=== PATIENT | male | born 1985 | race Hispanic/Latino ===

== ENCOUNTER 2021-05-20 15:02 | Emergency (ER) | payer SELFPAY ==
--- OUTSIDE RECORDS SUMMARY | 2021-05-20 15:05 | XMS REPORT | Continuity of Care Document ---
:[address] [facility] t Address [address] [place] [address] Care Team Providers Name Role Phone Asked, Pcp Primary Care Physician Unavailable Kelvin MCFARLAND T. Attending Clinician Problems This patient has no known problems. Allergies, Adverse Reactions, Alerts This patient has no known allergies or adverse reactions. Social History Social Habit Start Date Stop Date Quantity Comments Source Tobacco use and 2021-01-18 2021-01-18 [facility] used [facility]00 [facility] Alcohol intake 2021-01-18 2021-01-18 Ex-drinker [facility] 00:[facility]:00 [facility]:00 (finding) Hospital Sex Assigned At [birth year] [facility] Smoking Status Start Date Stop Date Source Never smoker [facility] Medications Ordered Filled Start Stop Current Ordering Indication Dosage Frequency Signature Comments Components Source Medication Medication Date Date Medication? Clinician (SIG) Name Name cetirizine No 10mg QD Take 1 Meth marcellus (ZyrTEC) 10 01-18 05-13 tablet (10 s t MG tablet 00:00: 04:59 mg total) Ho spita 00 :00 by mouth l daily for 15 days. Vital Signs Vital Name Observation Time Observation Value Comments Source Systolic blood 2021-01-18 22:18:00 137 mm[Hg] [facility] pressure Diastolic blood 2021-01-18 22:18:00 72 mm[Hg] [facility] pressure Heart rate 2021-01-18 22:18:00 71 /min [facility] Body temperature 2021-01-18 22:18:00 36.61 Cori [facility] Respiratory rate 2021-01-18 22:18:00 16 /min [facility] Oxygen saturation in 2021-01-18 22:18:00 99 /min [facility] Arterial blood by Pulse oximetry Body height 2021-01-18 18:35:00 182.9 cm [facility] Body weight 2021-01-18 18:35:00 136.079 kg [facility] BMI 2021-01-18 18:35:00 40.69 kg/m2 [facility] Procedures Procedure Date / Time Performed Performing Clinician Sour e GROUP A STREP, RAPID 2021-01-18 20:35:00 [facility] ANTIGEN RESPIRATORY PATHOGEN 2021-01-18 20:35:00 [facility] PANEL WITH COVID-19 RT-PCR STREP SCREEN CULTURE 2021-01-18 20:35:00 [facility] Encounters Start End Encounter Admission Attending Care Care Encounter Source Date/Time Date/Time Type Type Clinicians Facility Department ID 2019-11-27 Inpatient E [id number] 01:51:00 2021-01-18 2021-01-18 Emergency Kelvin, [id number] [facility] 14:04:00 17:21:00 Quentin Perez [id number] [id number] Hospit a [id number] .[id number] 2021-01-18 2021-01-18 [facility] [id number] [place] [address] 00:00:00 00:00:00 QUENTIN [address] Results This patient has no known results.
--- NOTE | 2021-05-20 15:42 | ER ---
Nurse's Notes [facility] Name: Dinesh Pino II Age: 35 yrs Sex: Male : 1985 Arrival Date: 05/20/2021 Time: 15:05 Bed 25 Private MD: Diagnosis: Other malaise and fatigue Presentation: 05/20 15:09 Chief complaint: Patient states: abd pain, ANGELES and nausea that began 2-3 days ago. PT is ss requesting a COVID test. Coronavirus screen: Client presents with at least one sign or symptom that may indicate coronavirus-19. Ebola Screen: Patient denies exposure to infectious person. Patient denies travel to an Ebola-affected area in the 21 days before illness onset. Initial Sepsis Screen: Does the patient meet any 2 criteria? No. Patient's initial sepsis screen is negative. Does the patient have a suspected source of infection? No. Patient's initial sepsis screen is negative. Risk Assessment: Do you want to hurt yourself or someone else? Patient reports no desire to harm self or others. Onset of symptoms was May 18, 2021. 15:09 Method Of Arrival: Ambulatory ss 15:09 Acuity: JAROCHO 4 ss Historical: - Allergies: 15:10 No Known Allergies; ss - Home Meds: 15:10 None [Active]; ss - PMHx: 15:10 None; ss - PSHx: 15:10 None; ss - Immunization history:: Client reports having NOT received the Covid vaccine. - Social history:: Smoking status: Patient denies any tobacco usage or history of. Screenin:44 Abuse screen: Denies threats or abuse. Nutritional screening: No deficits noted. vg1 Tuberculosis screening: No symptoms or risk factors identified. Fall Risk None identified. Assessment: 15:34 General: Appears in no apparent distress. comfortable, Behavior is calm, cooperative. vg1 Pain: Denies pain. Neuro: Level of Consciousness is awake, alert, obeys commands, Oriented to person, place, time, situation. Cardiovascular: Patient's skin is warm and dry. Respiratory: Airway is patent Respiratory effort is even, unlabored, Denies cough, shortness of breath labored breathing. GI: Bowel sounds present X 4 quads. Abd is soft and non tender X 4 quads. : No signs and/or symptoms were reported regarding the genitourinary system. EENT: No signs and/or symptoms were reported regarding the EENT system. Derm: Skin is intact, is healthy with good turgor. Musculoskeletal: Circulation, motion, and sensation intact. Vital Signs: 15:09 Weight 124.74 kg; Height 5 ft. 11 in. (180.34 cm); ss 15:11 BP 117 / 86; Pulse 92; Resp 16; Temp 97.8(TE); Pulse Ox 100% ; Pain 0/10; ss 15:09 Body Mass Index 38.35 (124.74 kg, 180.34 cm) ED Course: 15:05 Patient arrived in ED. ds1 15:10 Triage completed. 15:10 Arm band placed on left wrist. 15:13 Jordi Ramirez PA is PHCP. [facility] 15:13 Didier Meléndez MD is Attending Physician. [facility] 15:25 Amanda Qureshi, RN is Primary Nurse. vg1 15:35 No provider procedures requiring assistance completed. COVID swab sent to lab. Patient vg1 did not have IV access during this emergency room visit. 15:44 Patient has correct armband on for positive identification. vg1 Administered Medications: No medications were administered Outcome: 15:41 Discharge ordered by MD. [facility] 15:45 Discharged to home ambulatory. vg1 15:45 Condition: stable 15:45 Discharge instructions given to patient, Instructed on discharge instructions, follow up and referral plans. Demonstrated understanding of instructions, follow-up care. 15:45 Patient left the ED. vg1 Signatures: Jordi Ramirez PA PA jmm Sanford, Demi ds1 Kelly Hughes RN RN Amanda Qureshi RN RN vg1
--- NOTE | 2021-05-20 15:42 | EDPHYS ---
Physician Documentation [facility] Name: Dinesh Pino II Age: 35 yrs Sex: Male : 1985 Arrival Date: 05/20/2021 Time: 15:05 Bed 25 Private MD: ED Physician Didier Meléndez HPI: 05/20 15:25 This 35 yrs old Male presents to ER via Ambulatory with complaints of jmm Abdominal Pain, Nausea, Headache. 15:25 The patient presents with abdominal pain that is diffuse. Onset: The symptoms/episode jmm began/occurred gradually, 2 day(s) ago. The symptoms do not radiate. Associated signs and symptoms: Pertinent negatives: nausea, vomiting, and diarrhea, nausea and vomiting, anorexia, blood in stools, chest pain, constipation, diarrhea, dysuria, fever, headache, hematuria, nausea, shortness of breath, testicular pain, vomiting, vomiting blood. The symptoms are described as crampy. This is a 35-year-old male no chronic medical conditions presents emerged department with complaints of mild generalized abdominal pain, denies cough or shortness of breath. Denies vomiting. Patient states that symptoms began approximately 2 days ago. Pain is not localized to a single area of the abdomen. Denies vomiting, diarrhea. Denies recent antibiotics or known infectious exposure.. Historical: - Allergies: 15:10 No Known Allergies; ss - Home Meds: 15:10 None [Active]; ss - PMHx: 15:10 None; ss - PSHx: 15:10 None; ss - Immunization history:: Client reports having NOT received the Covid vaccine. - Social history:: Smoking status: Patient denies any tobacco usage or history of. ROS: 15:25 Cardiovascular: Negative for chest pain, palpitations, and edema, Respiratory: Negative jmm for shortness of breath, cough, wheezing, and pleuritic chest pain. 15:25 Constitutional: Positive for fatigue. 15:25 Abdomen/GI: Positive for abdominal pain. 15:25 All other systems are negative. Exam: 15:25 Constitutional: This is a well developed, well nourished patient who is awake, alert, jmm and in no acute distress. Head/Face: atraumatic. Eyes: EOMI, no conjunctival erythema appreciated ENT: Moist Mucus Membranes Neck: Trachea midline, Supple Chest/axilla: Normal chest wall appearance and motion. Cardiovascular: Regular rate and rhythm. No edema appreciated Respiratory: Normal respirations, no respiratory distress appreciated 15:25 Skin: General appearance color normal MS/ Extremity: Moves all extremities, no obvious deformities appreciated, no edema noted to the lower extremities Neuro: Awake and alert, normal gait Psych: Behavior is normal, Mood is normal, Patient is cooperative and pleasant 15:25 Abdomen/GI: Inspection: abdomen appears normal, obese Palpation: abdomen is soft and non-tender, in all quadrants. 15:25 Back: CVA tenderness, is absent. Vital Signs: 15:09 Weight 124.74 kg; Height 5 ft. 11 in. (180.34 cm); ss 15:11 BP 117 / 86; Pulse 92; Resp 16; Temp 97.8(TE); Pulse Ox 100% ; Pain 0/10; ss 15:09 Body Mass Index 38.35 (124.74 kg, 180.34 cm) ss MDM: 15:24 Patient medically screened. [facility] 15:40 Data reviewed: vital signs, nurses notes. Counseling: I had a detailed discussion with domonique the patient and/or guardian regarding: the historical points, exam findings, and any diagnostic results supporting the discharge/admit diagnosis, the need for outpatient follow up, to return to the emergency department if symptoms worsen or persist or if there are any questions or concerns that arise at home. ED course: Patient is alert and nontoxic in appearance in the ER. I discussed all labs and imaging studies with the patient. Patient will follow up with their primary care provider. Patient understood and agrees with plan of care. . 05/20 15:24 Order name: COVID-19 : Document "Date of Symptom Onset" if Symptomatic. [facility] Administered Medications: No medications were administered Disposition: 18:50 Co-signature as Attending Physician, Didier Meléndez MD. imer Disposition Summary: 05/20/21 15:41 Discharge Ordered Location: Home nilda Condition: Stable [facility] Diagnosis - Other malaise and fatigue nilda Followup: nilda - With: Private Physician - When: 2 - 3 days - Reason: Recheck today's complaints, Continuance of care, Re-evaluation by your physician Discharge Instructions: - Discharge Summary Sheet domonique - Fatigue nilda Forms: - Medication Reconciliation Form nilda - Thank You Letter domonique - Antibiotic Education jmm - Prescription Opioid Use jmm Signatures: Dispatcher MedHo Didier Harrison MD MD pkl Jordi Ramirez PA PA jmm Smirch, Shelby, RN RN ss
[2021-05-20 15:52] VITALS: BP 117/86; TEMP 97.8; O2SAT 100
== END 2021-05-20 15:45 | disposition home or self-care (01) ==
LOC: ER 15:02
DX: R53.83 Other fatigue (principal); R10.9 Unspecified abdominal pain; Z20.822 Contact with and (suspected) exposure to COVID-19
CPT/HCPCS: 99281; U0003